=== PATIENT | female | born 1975 | race Caucasian/White ===

== ENCOUNTER 2023-08-11 09:12 | Emergency (ER) | payer OTHER ==
[~2023-08-11] VITALS: Ht 177.8 cm; Wt 90.7 kg
[2023-08-11] MEDS ORDERED: CETIRIZINE10 MG PO (09:49)
[2023-08-11] MEDS ORDERED: PREDNISONE20 M1 PO (09:49)
[2023-08-11] MEDS ORDERED: Dexamethasone Sodium Phospha 20 MG/5 ML VIAL IM ONE (09:50)
[2023-08-11] MEDS ORDERED: diphenhydrAMINE hydrochloride 50 MG/ML VIAL IM ONE (09:50)
== END 2023-08-11 10:14 | disposition home or self-care (01) ==
LOC: ED 09:12
DX: L25.9 Unspecified contact dermatitis, unspecified cause (principal)